=== PATIENT | male | born 1975 | race Caucasian/White ===

== ENCOUNTER 2018-05-04 18:20 | Emergency (ER) | payer MEDICAID ==
[~2018-05-04] VITALS: Ht 182.9 cm; Wt 104.3 kg
[~2018-05-04 18:20] MED LIST: COLC0.6T67 PO; IBUP-2253 PO
[2018-05-04 18:26] VITALS: BP_SYST 138
[2018-05-04] MEDS ORDERED: DIPHENHYDRAMINE INJ 50 MG/ML VIAL IVP ONE (18:45)
[2018-05-04] MEDS ORDERED: COLCHICINE 0.6 MG TABLET PO SCH (18:45)
[2018-05-04] MEDS ORDERED: KETOROLAC TROMETHAMINE 30 MG VIAL IVP ONE (18:45)
[2018-05-04] MEDS ORDERED: MORPHINE 4 MG/ML INJ. SYRINGE IVP ONE (18:45)
[2018-05-04] MEDS ORDERED: CEFAZOLIN 1 GM IVPB PREMIX 50 ML IV ONE (19:00)
[2018-05-04 19:08] LABS: BASOPHILS # (AUTO) 0.1 K/uL (0.0-0.2); BASOPHILS % (AUTO) 0.7 % (0.0-2.0); EOSINOPHILS # (AUTO) 0.5 K/uL (0.0-0.4); EOSINOPHILS % (AUTO) 3.5 % (0.0-4.0); HEMATOCRIT 46.5 % (36-54); HEMOGLOBIN 15.5 g/dL (14.0-18.0); LYMPHOCYTES # (AUTO) 4.5 K/uL (1.0-5.5); LYMPHOCYTES % (AUTO) 29.6 % (20.5-51.5); MEAN CORPUSCULAR HEMOGLOBIN 31 pg (27-31); MEAN CORPUSCULAR HGB CONC 33 % (32-36); MEAN CORPUSCULAR VOLUME 93 fL (79.0-98.0); MONOCYTES # (AUTO) 1.1 K/uL (0.0-1.0); MONOCYTES % (AUTO) 7.3 % (1.7-9.3); NEUTROPHILS # (AUTO) 8.9 K/uL (1.8-7.7); NEUTROPHILS % (AUTO) 58.9 % (40.0-70.0); PLATELET COUNT (AUTO) 484 K/uL (130-430); RED BLOOD CELL COUNT(AUTO) 5.03 MIL/uL (4.2-6.2); RED CELL DISTRIBUTION WIDTH 12.3 % (9.0-15.0); WHITE BLOOD COUNT (AUTO) 15.1 K/uL (4.8-10.8)
[2018-05-04 19:22] LABS: CALCIUM 8.6 mg/dL (8.4-11.0); CREATININE 0.72 mg/dL (0.55-1.30); POTASSIUM 3.6 mmol/L (3.5-5.1)
[2018-05-04 19:27] LABS: ALBUMIN 3.3 g/dL (3.4-4.8); TOTAL BILIRUBIN 0.3 mg/dL (0.0-1.0)
[2018-05-04] MEDS ORDERED: COLCHICINE 0.6 MG TABLET ONE (19:27)
[2018-05-04] MEDS ORDERED: RIVA20TA PO (19:31)
[2018-05-04] MEDS ORDERED: LEVO112T2 PO (19:31)
[2018-05-04] MEDS ORDERED: PRAM1TAB4 PO (19:31)
[2018-05-04] MEDS ORDERED: SOTA80TA PO (19:31)
[2018-05-04] MEDS ORDERED: NACL 0.9% 1,000 ML IV ONE (19:45)
[2018-05-04 20:43] LABS: BILIRUBIN,URINE NEGATIVE (NEGATIVE); BLOOD, URINE NEGATIVE (NEGATIVE); CLARITY/URINE CLEAR (CLEAR); COLOR,URINE YELLOW (YELLOW); GLUCOSE,URINE NEGATIVE (NEGATIVE); KETONES,URINE NEGATIVE (NEGATIVE); LEUKOCYTE ESTERASE ,URINE NEGATIVE (NEGATIVE); NITRITE, URINE NEGATIVE (NEGATIVE); PH,URINE 5.5 (5.0-8.0); PROTEIN URINE NEGATIVE (NEGATIVE); UROBILINOGEN,URINE 0.2 (0.2-1.0)
[2018-05-04 21:03] LABS: BARBITURATE, URINE NEGATIVE (NEG <=200); BENZODIAZEPINE, URINE NEGATIVE (NEG <=150); CANNABINOID, URINE POSITIVE (NEG <=50); COCAINE, URINE NEGATIVE (NEG <=150); METHAMPHETAMINES SCREEN,URINE NEGATIVE (NEG <=500); PHENCYCLIDINE SCREEN,URINE NEGATIVE (NEG <=25); URINE AMPHETAMINE NEGATIVE (NEG <=500); URINE METHADONE NEGATIVE (NEG <=200)
[2018-05-04 21:04] LABS: OPIATE, URINE POSITIVE (NEG <=100); UR TRICYCLIC ANTIDEPRESSANTS NEGATIVE (NEG <=300); URINE OXYCODONE SCREEN NEGATIVE (NEG <=100); URINE PROPOXYPHENE SCREEN NEGATIVE (NEG <=300)
[2018-05-04 22:09] VITALS: BP_SYST 136
== END 2018-05-04 22:09 | disposition home or self-care (01) ==
LOC: SED 18:20
DX: L03.116 Cellulitis of left lower limb (principal); M10.9 Gout, unspecified; J40 Bronchitis, not specified as acute or chronic; E87.1 Hypo-osmolality and hyponatremia; F17.210 Nicotine dependence, cigarettes, uncomplicated; Z79.899 Other long term (current) drug therapy; Z71.6 Tobacco abuse counseling
CPT/HCPCS: 36415; 71045; 80053; 80307; 81003; 83605; 84484; 85025; 87040; 93005; 93970; 96365; 96375; 99285; J0690; J1200; J1885; J2270

== ENCOUNTER 2019-10-07 16:29 | Emergency (ER) | payer MEDICAID ==
[~2019-10-07] VITALS: Ht 182.9 cm; Wt 104.3 kg
[~2019-10-07 16:29] MED LIST changes: -COLC0.6T67 PO; -IBUP-2253 PO; +LEVO112T2 PO; +PRAM1TAB4 PO; +RIVA20TA PO; +SOTA80TA PO
[2019-10-07 16:46] VITALS: BP_SYST 149
--- NOTE | 2019-10-07 17:32 | NUR ---
PLCPatient to ER bed 01 for evaluation. Side rails up. Report given to Leslie JOSEPH.
--- NOTE | 2019-10-07 17:34 | NUR ---
Patient arrived in the ED c/o RUQ abdominal pain that started 3 days ago. Patient denied any chest pain or shortness of breath. Denied any fevers, chills, nausea, or vomiting. Patient is alert and oriented x4, respirations even and unlabored, speaking in full sentences, ambulating with a steady gait. VSS, pain level 4/10. Informed of approximate wait time. Instructed to notify ED staff for any changes in condition or worsening of symptoms. Patient verbalized understanding.
--- NOTE | 2019-10-07 17:38 | NUR ---
ER Dr. Qiu at bedside examining patient.
[2019-10-07] MEDS ORDERED: NACL 0.9% 1,000 ML IV ONE (17:43)
--- NOTE | 2019-10-07 17:43 | NUR ---
Patient is taken to CT, in stable condition.
[2019-10-07] MEDS ORDERED: KETOROLAC TROMETHAMINE 30 MG VIAL IVP ONE (17:45)
[2019-10-07] MEDS ORDERED: ONDANSETRON HCL 4 MG/2 ML VIAL IVP ONE (17:45)
--- NOTE | 2019-10-07 18:00 | NUR ---
Patient is back from CT, in stable condition.
[2019-10-07 18:05] LABS: BILIRUBIN,URINE NEGATIVE (NEGATIVE); BLOOD, URINE NEGATIVE (NEGATIVE); CLARITY/URINE CLEAR (CLEAR); GLUCOSE,URINE NEGATIVE (NEGATIVE); KETONES,URINE NEGATIVE (NEGATIVE); LEUKOCYTE ESTERASE ,URINE NEGATIVE (NEGATIVE); NITRITE, URINE NEGATIVE (NEGATIVE); PROTEIN URINE NEGATIVE (NEGATIVE); UROBILINOGEN,URINE 0.2 (0.2-1.0)
--- NOTE | 2019-10-07 18:05 | NUR ---
# 18 gauge angiocath placed to right wrist. Use of asceptic technique. Opsite placed over site. Blood return noted. Blood for lab drawn from site. Flushed with 10 cc of normal saline. No evidence of infiltration noted. Patient tolerated well.
--- NOTE | 2019-10-07 18:16 | NUR ---
Administered Zofran and Toradol IVP as ordered by Dr. Qiu. Patient tolerated the medication well. See eMAR for details.
[2019-10-07 18:26] LABS: COLOR,URINE STRAW (YELLOW)
[2019-10-07 18:37] LABS: EOSINOPHILS # (AUTO) 0.3 K/uL (0.0-0.4)
[2019-10-07 18:47] LABS: BASOPHILS # (AUTO) 0.2 K/uL (0.0-0.2); EOSINOPHILS % (AUTO) 2.3 % (0.0-4.0); HEMATOCRIT 45.9 % (36-54); HEMOGLOBIN 15.2 g/dL (14.0-18.0); LYMPHOCYTES # (AUTO) 5.1 K/uL (1.0-5.5); LYMPHOCYTES % (AUTO) 34.3 % (20.5-51.5); MEAN CORPUSCULAR HEMOGLOBIN 30 pg (27-31); MEAN CORPUSCULAR HGB CONC 33 % (32-36); MEAN CORPUSCULAR VOLUME 91 fL (79.0-98.0); MONOCYTES # (AUTO) 1.4 K/uL (0.0-1.0); MONOCYTES % (AUTO) 9.3 % (1.7-9.3); NEUTROPHILS # (AUTO) 7.9 K/uL (1.8-7.7); NEUTROPHILS % (AUTO) 53.1 % (40.0-70.0); PLATELET COUNT (AUTO) 443 K/uL (130-430); RED BLOOD CELL COUNT(AUTO) 5.03 MIL/uL (4.2-6.2); WHITE BLOOD COUNT (AUTO) 14.9 K/uL (4.8-10.8)
[2019-10-07 19:18] LABS: CALCIUM 8.3 mg/dL (8.4-11.0); CREATININE 0.87 mg/dL (0.55-1.30)
--- NOTE | 2019-10-07 19:21 | NUR ---
Patient eloped at 1920. Addendum: 10/07/19 at 1925 by [email or web address] Patient eloped with IV access at 1920. PD called.
[2019-10-07 19:23] LABS: ALBUMIN 3.7 g/dL (3.4-4.8); TOTAL BILIRUBIN 0.4 mg/dL (0.0-1.0)
[2019-10-07 19:27] LABS: POTASSIUM 4.7 mmol/L (3.5-5.1)
--- NOTE | 2019-10-07 19:27 | NUR ---
Report given and care transferred to JAKE Prado.
--- NOTE | 2019-10-07 19:28 | NUR ---
Patient came back in. aware.
--- NOTE | 2019-10-07 19:32 | NUR ---
Patient given written and verbal discharge instructions and verbalizes understanding. ER MD discussed with patient the results and treatment provided. Patient in stable condition. ID arm band removed. IV catheter removed intact and dressing applied, no active bleeding. Rx of Protonix and Zofran given. Patient educated on pain management and to follow up with PMD. Pain Scale 0/10 Opportunity for questions provided and answered. Medication side effect fact sheet provided.
[2019-10-07 19:47] VITALS: BP_SYST 149
== END 2019-10-07 19:23 | disposition home or self-care (01) ==
LOC: SED 16:29
DX: R10.84 Generalized abdominal pain (principal); F17.210 Nicotine dependence, cigarettes, uncomplicated; Z79.899 Other long term (current) drug therapy; Z71.6 Tobacco abuse counseling
CPT/HCPCS: 36415; 74176; 80053; 81003; 83690; 85025; 96374; 96375; 99284; J1885; J2405; J7030

== ENCOUNTER 2019-11-01 19:16 | Inpatient (IN) | payer MEDICAID ==
[~2019-11-01] VITALS: Ht 182.9 cm; Wt 102.1 kg
[2019-11-01 19:43] VITALS: BP_SYST 121
[2019-11-01] MEDS ORDERED: VANCOMYCIN HCL 1,500 MG in NS 250 ML IV ONE (21:45)
[2019-11-01] MEDS ORDERED: PIPERACILLIN/TAZO 3.375 GM in NS 50 ML IV ONE (21:45)
[2019-11-01] MEDS ORDERED: PIPERACILLIN/TAZOBACTAM 3.375 GM/VIAL (ZOSYN) IV ONE (22:15)
[2019-11-01] MEDS ORDERED: VANCOMYCIN HCL 1000 MG/VIAL IV ONE (22:15)
[2019-11-01] MEDS ORDERED: MORPHINE SULFATE 10 MG/ML VIAL IVP ONE (22:15)
[2019-11-01 22:20] LABS: BASOPHILS # (AUTO) 0.1 K/uL (0.0-0.2); EOSINOPHILS # (AUTO) 0.4 K/uL (0.0-0.4); EOSINOPHILS % (AUTO) 2.9 % (0.0-4.0); HEMATOCRIT 43.3 % (36-54); HEMOGLOBIN 14.6 g/dL (14.0-18.0); LYMPHOCYTES # (AUTO) 4.1 K/uL (1.0-5.5); LYMPHOCYTES % (AUTO) 33.4 % (20.5-51.5); MEAN CORPUSCULAR HEMOGLOBIN 31 pg (27-31); MEAN CORPUSCULAR HGB CONC 34 % (32-36); MEAN CORPUSCULAR VOLUME 91 fL (79.0-98.0); MONOCYTES # (AUTO) 1.1 K/uL (0.0-1.0); MONOCYTES % (AUTO) 9.3 % (1.7-9.3); NEUTROPHILS # (AUTO) 6.5 K/uL (1.8-7.7); NEUTROPHILS % (AUTO) 53.4 % (40.0-70.0); PLATELET COUNT (AUTO) 367 K/uL (130-430); RED BLOOD CELL COUNT(AUTO) 4.75 MIL/uL (4.2-6.2); RED CELL DISTRIBUTION WIDTH 14.1 % (9.0-15.0); WHITE BLOOD COUNT (AUTO) 12.2 K/uL (4.8-10.8)
[2019-11-01 22:31] LABS: CALCIUM 8.3 mg/dL (8.4-11.0); CREATININE 0.76 mg/dL (0.55-1.30)
[2019-11-01 22:37] LABS: ALBUMIN 3.6 g/dL (3.4-4.8); TOTAL BILIRUBIN 0.3 mg/dL (0.0-1.0)
[2019-11-01] MEDS ORDERED: ALLO300T2 PO (22:45)
[2019-11-01] MEDS ORDERED: COLC0.6T67 PO (22:46)
[2019-11-01] MEDS ORDERED: MORPHINE 4 MG/ML INJ. SYRINGE IVP ONE (23:00)
[2019-11-01 23:58] VITALS: BP_SYST 119
[2019-11-02] MEDS ORDERED: HYDROcodone/ACETAMIN 5-325 MG TAB (NORCO/ VICODIN) PO PRN (00:30)
[2019-11-02] MEDS ORDERED: ACETAMINOPHEN 325 MG TABLET PO PRN ×2 (00:30→04:00)
[2019-11-02] MEDS ORDERED: ONDANSETRON HCL 4 MG/2 ML VIAL IVP PRN (00:30)
[2019-11-02] MEDS ORDERED: MORPHINE 2 MG/ML INJ. SYRINGE IVP PRN (00:30)
[2019-11-02] MEDS ORDERED: HYDROcodone/ACETAMIN 10-325 MG TAB PO PRN (00:30)
[2019-11-02] MEDS: HYDROmorphone 1 MG INJ. 1 MG/ML AMPUL IVP PRN ×7 (01:27→23:05)
[2019-11-02] MEDS ORDERED: MORPHINE SULFATE 10 MG/ML VIAL IVP PRN (04:00)
[2019-11-02] MEDS: PIPERACILLIN/TAZO 3.375/DEX-IS 50 ML IV SCH ×4 (05:29→23:18)
[2019-11-02] MEDS: NORMAL SALINE 5 ML DISP.SYRIN IVF SCH ×3 (05:31→21:24)
[2019-11-02] MEDS ORDERED: NORMAL SALINE 5 ML DISP.SYRIN IVF SCH (06:00)
[2019-11-02 08:22] VITALS: BP_SYST 143
[2019-11-02] MEDS: ALLOPURINOL 300 MG TABLET (ZYLOPRIM) PO SCH (09:04)
[2019-11-02] MEDS: methylPREDNISolone SOD SUCC 40 MG/ML VIAL IVP SCH (09:04)
[2019-11-02] MEDS: INDOMETHACIN 25 MG CAPSULE(INDOCIN) PO SCH ×3 (09:05→21:23)
[2019-11-02 11:57] VITALS: BP_SYST 129
[2019-11-02 13:28] LABS: BASOPHILS # (AUTO) 0.1 K/uL (0.0-0.2); BASOPHILS % (AUTO) 0.3 % (0.0-2.0); EOSINOPHILS # (AUTO) 0.1 K/uL (0.0-0.4); EOSINOPHILS % (AUTO) 0.7 % (0.0-4.0); HEMATOCRIT 49.3 % (36-54); HEMOGLOBIN 16.2 g/dL (14.0-18.0); LYMPHOCYTES # (AUTO) 1.4 K/uL (1.0-5.5); LYMPHOCYTES % (AUTO) 8.2 % (20.5-51.5); MEAN CORPUSCULAR HEMOGLOBIN 30 pg (27-31); MEAN CORPUSCULAR HGB CONC 33 % (32-36); MEAN CORPUSCULAR VOLUME 92 fL (79.0-98.0); MONOCYTES # (AUTO) 0.2 K/uL (0.0-1.0); MONOCYTES % (AUTO) 1.2 % (1.7-9.3); NEUTROPHILS # (AUTO) 15.4 K/uL (1.8-7.7); NEUTROPHILS % (AUTO) 89.6 % (40.0-70.0); PLATELET COUNT (AUTO) 372 K/uL (130-430); RED BLOOD CELL COUNT(AUTO) 5.34 MIL/uL (4.2-6.2); RED CELL DISTRIBUTION WIDTH 14.4 % (9.0-15.0); WHITE BLOOD COUNT (AUTO) 17.2 K/uL (4.8-10.8)
[2019-11-02 13:46] LABS: CALCIUM 8.3 mg/dL (8.4-11.0); CREATININE 0.92 mg/dL (0.55-1.30); POTASSIUM 4.4 mmol/L (3.5-5.1)
[2019-11-02 13:49] LABS: PHOSPHORUS 3.6 mg/dL (2.7-4.5); URIC ACID 6.9 mg/dL (2.4-7.0)
[2019-11-02 14:16] LABS: ERYTHROCYTE SEDIMENTATION RATE 8 MM/HR (0-15)
[2019-11-02] MEDS: LORazepam 2 MG/ML VIAL IVP PRN (16:01)
[2019-11-02 16:07] VITALS: BP_SYST 129
[2019-11-02 20:00] VITALS: BP_SYST 135
[2019-11-03 00:37] VITALS: BP_SYST 133
[2019-11-03] MEDS: HYDROmorphone 1 MG INJ. 1 MG/ML AMPUL IVP PRN ×5 (02:53→21:48)
[2019-11-03] MEDS: PIPERACILLIN/TAZO 3.375/DEX-IS 50 ML IV SCH (05:36)
[2019-11-03] MEDS: NORMAL SALINE 5 ML DISP.SYRIN IVF SCH ×3 (05:37→21:44)
[2019-11-03 07:02] LABS: HEMATOCRIT 43.6 % (36-54); HEMOGLOBIN 14.3 g/dL (14.0-18.0); MEAN CORPUSCULAR HEMOGLOBIN 30 pg (27-31); MEAN CORPUSCULAR HGB CONC 33 % (32-36); MEAN CORPUSCULAR VOLUME 92 fL (79.0-98.0); NEUTROPHILS % (AUTO) 70.1 % (40.0-70.0); PLATELET COUNT (AUTO) 362 K/uL (130-430); RED BLOOD CELL COUNT(AUTO) 4.73 MIL/uL (4.2-6.2); RED CELL DISTRIBUTION WIDTH 13.9 % (9.0-15.0); WHITE BLOOD COUNT (AUTO) 16.1 K/uL (4.8-10.8)
[2019-11-03 07:03] LABS: BASOPHILS % (AUTO) 0.3 % (0.0-2.0); EOSINOPHILS # (AUTO) 0.1 K/uL (0.0-0.4); EOSINOPHILS % (AUTO) 0.4 % (0.0-4.0); LYMPHOCYTES % (AUTO) 18.4 % (20.5-51.5); MONOCYTES # (AUTO) 1.7 K/uL (0.0-1.0); MONOCYTES % (AUTO) 10.8 % (1.7-9.3); NEUTROPHILS # (AUTO) 11.3 K/uL (1.8-7.7)
[2019-11-03 07:21] LABS: CALCIUM 8.1 mg/dL (8.4-11.0); CREATININE 0.89 mg/dL (0.55-1.30); PHOSPHORUS 4.4 mg/dL (2.7-4.5); POTASSIUM 4.1 mmol/L (3.5-5.1)
[2019-11-03] MEDS: methylPREDNISolone SOD SUCC 40 MG/ML VIAL IVP SCH (09:24)
[2019-11-03] MEDS: ALLOPURINOL 300 MG TABLET (ZYLOPRIM) PO SCH (09:25)
[2019-11-03] MEDS: INDOMETHACIN 25 MG CAPSULE(INDOCIN) PO SCH ×3 (11:47→21:44)
[2019-11-03 12:01] VITALS: BP_SYST 125
[2019-11-03] MEDS ORDERED: NICOTINE 21 MG/24 HR PATCH.TD24 TD ONE (13:15)
[2019-11-03] MEDS: ceFAZolin SODIUM 1 GM in D5W 50 ML IV SCH ×2 (13:30→21:45)
[2019-11-03 15:03] LABS: RA LATEX TURBID 47.2 IU/mL (0.0-13.9)
[2019-11-03 16:31] VITALS: BP_SYST 150
[2019-11-03] MEDS: LORazepam 2 MG/ML VIAL IVP PRN (18:43)
[2019-11-03] MEDS ORDERED: COLCHICINE 0.6 MG TABLET PO SCH (21:00)
[2019-11-03 21:37] VITALS: BP_SYST 138
[2019-11-04 01:29] VITALS: BP_SYST 120
[2019-11-04] MEDS: HYDROmorphone 1 MG INJ. 1 MG/ML AMPUL IVP PRN (01:34)
[2019-11-04] MEDS: ceFAZolin SODIUM 1 GM in D5W 50 ML IV SCH (05:34)
[2019-11-04] MEDS: NORMAL SALINE 5 ML DISP.SYRIN IVF SCH (05:35)
[2019-11-04 07:47] LABS: C-REACTIVE PROTEIN QUANT 0.5 mg/dL (0-0.5); CALCIUM 8.3 mg/dL (8.4-11.0); CREATININE 0.79 mg/dL (0.55-1.30); POTASSIUM 3.9 mmol/L (3.5-5.1)
[2019-11-04 07:52] LABS: BASOPHILS % (AUTO) 0.3 % (0.0-2.0); EOSINOPHILS # (AUTO) 0.1 K/uL (0.0-0.4); HEMATOCRIT 43.3 % (36-54); HEMOGLOBIN 14.1 g/dL (14.0-18.0); LYMPHOCYTES # (AUTO) 4.5 K/uL (1.0-5.5); LYMPHOCYTES % (AUTO) 34.1 % (20.5-51.5); MEAN CORPUSCULAR HEMOGLOBIN 30 pg (27-31); MEAN CORPUSCULAR HGB CONC 33 % (32-36); MEAN CORPUSCULAR VOLUME 92 fL (79.0-98.0); MONOCYTES # (AUTO) 1.4 K/uL (0.0-1.0); MONOCYTES % (AUTO) 10.8 % (1.7-9.3); NEUTROPHILS % (AUTO) 53.8 % (40.0-70.0); PLATELET COUNT (AUTO) 366 K/uL (130-430); WHITE BLOOD COUNT (AUTO) 13.1 K/uL (4.8-10.8)
[2019-11-04 08:49] LABS: ERYTHROCYTE SEDIMENTATION RATE 9 MM/HR (0-15)
[2019-11-04] MEDS ORDERED: NICOTINE 21 MG/24 HR PATCH.TD24 TD SCH (09:00)
[2019-11-04 14:06] LABS: ANTI NUCLEAR AB WITH REFLEX Negative (Negative)
== END 2019-11-04 07:35 | disposition left against medical advice (07) | DRG 351 ==
LOC: SED 19:16 → SMU 22:38
PROVIDERS: ADMIT Preventive Medicine Preventive Medicine/Occupational Environmental Medicine; ATTEND Preventive Medicine Preventive Medicine/Occupational Environmental Medicine
DX: M65.9 Synovitis and tenosynovitis, unspecified (principal); E83.51 Hypocalcemia; M10.9 Gout, unspecified; E03.9 Hypothyroidism, unspecified; E87.1 Hypo-osmolality and hyponatremia; R73.9 Hyperglycemia, unspecified; Z53.29 Procedure and treatment not carried out because of patient's decision for other reasons; T38.0X5A Adverse effect of glucocorticoids and synthetic analogues, initial encounter; F17.210 Nicotine dependence, cigarettes, uncomplicated; Y92.89 Other specified places as the place of occurrence of the external cause
CPT/HCPCS: 36415; 80048; 80053; 83735-TC; 84100-TC; 84550-TC; 85025; 85651-TC; 86038; 86140; 86431; 87040-TC; 96365; 96375; 96376; 99285; J0690; J1030; J1170; J2060; J2270; J2405; J2543; J3370; J7060

== ENCOUNTER 2019-11-11 18:12 | Emergency (ER) | payer MEDICAID ==
[~2019-11-11] VITALS: Ht 185.4 cm; Wt 99.8 kg
[~2019-11-11 18:12] MED LIST changes: +ALLO300T2 PO; +COLC0.6T67 PO; -LEVO112T2 PO; -PRAM1TAB4 PO; -RIVA20TA PO; -SOTA80TA PO
--- NOTE | 2019-11-11 18:12 | NUR ---
Patient to ER bed 6 to gown for evaluation. Side rails up. Report given to JAKE ibarra.
--- NOTE | 2019-11-11 18:13 | NUR ---
ER Dr. NAVA at bedside examining patient.
--- NOTE | 2019-11-11 18:15 | NUR ---
PATIENT COMPLAINS OF A LEFT HAND GANGLION CYST THAT HAS SWOLLEN UP AND BEEN IN PAIN. THE SWELLING STARTED YESTERDAY. PATIENT STATES HIS FINGERS ARE TINGLING AND THE CSYT HAS A PULSATING FEELING. PATIENT RATES HIS PAIN A 10/10. HE WAS HOSPITALIZED LAST WEEK FOR THE SAME COMPLAINT.
[2019-11-11 18:19] VITALS: BP_SYST 122
[2019-11-11 18:29] VITALS: BP_SYST 122
--- NOTE | 2019-11-11 18:29 | NUR ---
Patient given written and verbal discharge instructions and verbalizes understanding. ER MD discussed with patient the results and treatment provided. Patient in stable condition. ID arm band removed. Rx of TRAMADOL AND KEFLEX given. Patient educated on pain management and to follow up with PMD. Pain Scale 10/10. Patient will grape picker prescribed medications. Opportunity for questions provided and answered. Medication side effect fact sheet provided.
== END 2019-11-11 18:29 | disposition home or self-care (01) ==
LOC: SED 18:12
DX: M67.442 Ganglion, left hand (principal); M79.642 Pain in left hand; M10.9 Gout, unspecified; K21.9 Gastro-esophageal reflux disease without esophagitis; N28.9 Disorder of kidney and ureter, unspecified; Z86.73 Personal history of transient ischemic attack (TIA), and cerebral infarction without residual deficits; Z86.79 Personal history of other diseases of the circulatory system
CPT/HCPCS: 99283

== ENCOUNTER 2020-03-03 17:22 | Emergency (ER) | payer MEDICAID, SELFPAY ==
[~2020-03-03] VITALS: Ht 182.9 cm; Wt 104.3 kg
[2020-03-03 17:22] VITALS: BP_SYST 113
--- NOTE | 2020-03-03 17:22 | NUR ---
Patient to ER surge tent for evaluation.
--- NOTE | 2020-03-03 17:23 | NUR ---
Patient came from home for evaluation of COVID-19 symptoms. A family member that lives with them tested positive yesterday.
--- NOTE | 2020-03-03 17:53 | NUR ---
ER in tent examining patient.
--- NOTE | 2020-03-03 19:06 | NUR ---
Report given to JAKE Morales for continuation of care.
[2020-03-03 19:29] VITALS: BP_SYST 113
--- NOTE | 2020-03-03 19:30 | NUR ---
Patient given written and verbal discharge instructions and verbalizes understanding. ER MD discussed with patient the results and treatment provided. Patient in stable condition. ID arm band removed. Rx of Dexamethasone,Zinc sulfate, Hydroxychloroquine and Azithromycin given. Patient educated on pain management and to follow up with PMD. Pain Scale 0/10 . Opportunity for questions provided and answered. Medication side effect fact sheet provided.
== END 2020-03-03 19:29 | disposition home or self-care (01) ==
LOC: SED 17:22
DX: R50.9 Fever, unspecified (principal); R43.0 Anosmia; R43.2 Parageusia; F17.200 Nicotine dependence, unspecified, uncomplicated; Z20.828 Contact with and (suspected) exposure to other viral communicable diseases
CPT/HCPCS: 71045; 99283; J7060; J7040

== ENCOUNTER 2020-03-29 11:48 | Emergency (ER) | payer MEDICAID, SELFPAY ==
[~2020-03-29] VITALS: Ht 175.3 cm; Wt 90.7 kg
--- NOTE | 2020-03-29 11:52 | NUR ---
Patient to ER bed 03 to gown for evaluation. Side rails up.
[2020-03-29 12:00] VITALS: BP_SYST 172
--- NOTE | 2020-03-29 12:20 | NUR ---
Pt came to ER with what he describes as "pulling" chest pain and bilateral low back pain. Pt is resting in [facility] awaiting
--- NOTE | 2020-03-29 12:25 | NUR ---
ER at bedside examining patient.
[2020-03-29 12:57] LABS: BILIRUBIN,URINE NEGATIVE (NEGATIVE); BLOOD, URINE NEGATIVE (NEGATIVE); CLARITY/URINE CLEAR (CLEAR); COLOR,URINE YELLOW (YELLOW); GLUCOSE,URINE NEGATIVE (NEGATIVE); KETONES,URINE NEGATIVE (NEGATIVE); LEUKOCYTE ESTERASE ,URINE NEGATIVE (NEGATIVE); NITRITE, URINE NEGATIVE (NEGATIVE); PROTEIN URINE NEGATIVE (NEGATIVE); UROBILINOGEN,URINE 0.2 (0.2-1.0)
[2020-03-29 13:11] LABS: BARBITURATE, URINE NEGATIVE (NEG <=200); BENZODIAZEPINE, URINE NEGATIVE (NEG <=150); CANNABINOID, URINE POSITIVE (NEG <=50); COCAINE, URINE NEGATIVE (NEG <=150); METHAMPHETAMINES SCREEN,URINE NEGATIVE (NEG <=500); OPIATE, URINE NEGATIVE (NEG <=100); PHENCYCLIDINE SCREEN,URINE NEGATIVE (NEG <=25); UR TRICYCLIC ANTIDEPRESSANTS NEGATIVE (NEG <=300); URINE AMPHETAMINE NEGATIVE (NEG <=500); URINE METHADONE NEGATIVE (NEG <=200); URINE OXYCODONE SCREEN NEGATIVE (NEG <=100); URINE PROPOXYPHENE SCREEN NEGATIVE (NEG <=300)
[2020-03-29 13:15] LABS: CALCIUM 8.5 mg/dL (8.4-11.0); CREATININE 0.78 mg/dL (0.55-1.30)
[2020-03-29 13:20] LABS: ALBUMIN 3.8 g/dL (3.4-4.8); PROTHROMBIN TIME 9.9 SECS (9.5-12.5); TOTAL BILIRUBIN 0.6 mg/dL (0.0-1.0)
[2020-03-29 13:28] LABS: BASOPHILS # (AUTO) 0.1 K/uL (0.0-0.2); EOSINOPHILS # (AUTO) 0.4 K/uL (0.0-0.4); HEMATOCRIT 44.6 % (36-54); HEMOGLOBIN 15.1 g/dL (14.0-18.0); LYMPHOCYTES # (AUTO) 3.5 K/uL (1.0-5.5); LYMPHOCYTES % (AUTO) 32.9 % (20.5-51.5); MEAN CORPUSCULAR HEMOGLOBIN 32 pg (27-31); MEAN CORPUSCULAR HGB CONC 34 % (32-36); MEAN CORPUSCULAR VOLUME 93 fL (79.0-98.0); MONOCYTES % (AUTO) 9.8 % (1.7-9.3); NEUTROPHILS # (AUTO) 5.5 K/uL (1.8-7.7); NEUTROPHILS % (AUTO) 52.3 % (40.0-70.0); PLATELET COUNT (AUTO) 312 K/uL (130-430); RED BLOOD CELL COUNT(AUTO) 4.79 MIL/uL (4.2-6.2); RED CELL DISTRIBUTION WIDTH 13.4 % (9.0-15.0); WHITE BLOOD COUNT (AUTO) 10.6 K/uL (4.8-10.8)
--- NOTE | 2020-03-29 13:33 | NUR ---
Pt resting in [facility] at this time no distress noted
[2020-03-29 14:00] VITALS: BP_SYST 146
--- NOTE | 2020-03-29 14:00 | NUR ---
Patient given written and verbal discharge instructions and verbalizes understanding. ER MD discussed with patient the results and treatment provided. Patient in stable condition. ID arm band removed. Rx of Hydrocortisone given. Patient educated on pain management and to follow up with PMD. Pain Scale 0/10. Opportunity for questions provided and answered. Medication side effect fact sheet provided.
== END 2020-03-29 14:00 | disposition home or self-care (01) ==
LOC: SED 11:48
DX: L25.9 Unspecified contact dermatitis, unspecified cause (principal); F10.229 Alcohol dependence with intoxication, unspecified; F12.129 Cannabis abuse with intoxication, unspecified; E87.1 Hypo-osmolality and hyponatremia; Z79.899 Other long term (current) drug therapy; Y90.6 Blood alcohol level of 120-199 mg/100 ml
CPT/HCPCS: 36415; 80053; 80307; 81003; 85025; 85610; 85730; 93005; 99284; G0482